=== PATIENT | female | born 1995 | race Hispanic/Latino ===

== ENCOUNTER 2017-08-04 18:47 | Emergency (ER) | payer MEDICAID ==
[2017-08-04 19:40] LABS: BASOPHILS % (AUTO) 0.4 % (0.0-5.0); EOSINOPHILS % (AUTO) 0.3 % (0.0-8.0); HEMATOCRIT 40.7 % (36-48); LYMPHOCYTES % (AUTO) 15.6 % (21.0-51.0); MEAN CORPUSCULAR HEMOGLOBIN 28.7 pg (27.0-33.0); MEAN CORPUSCULAR HGB CONC 33.9 g/dL (32.0-36.0); MEAN CORPUSCULAR VOLUME 84.7 fL (79-99); MONOCYTES % (AUTO) 8.2 % (3.0-13.0); NEUTROPHILS % (AUTO) 75.5 % (40.0-77.0); PLATELET COUNT (AUTO) 302 K/uL (130-400); WHITE BLOOD COUNT (AUTO) 11.9 K/uL (4.8-10.8)
[2017-08-04 19:43] LABS: BILIRUBIN,URINE Negative (NEGATIVE); COLOR,URINE Yellow (YELLOW); GLUCOSE, URINE (UA) Negative (NEGATIVE); KETONES,URINE Negative (NEGATIVE); LEUKOCYTE ESTERASE ,URINE Moderate (NEGATIVE); NITRATE,URINE Positive (NEGATIVE); OCCULT BLOOD,URINE Moderate (NEGATIVE); PH,URINE 5.5 (5.0-8.0); PROTEIN,URINE Negative (NEGATIVE)
[2017-08-04 19:46] LABS: APPEARANCE,URINE SLIGHTLY CLOUDY (CLEAR)
[2017-08-04 19:56] LABS: HCG,QUAL RESULT NEGATIVE (NEGATIVE)
[2017-08-04] MEDS ORDERED: ACETAMINOPHEN EXTRA STRENGTH 500 MG TABLET ONE (20:00)
[2017-08-04 20:10] LABS: CREATININE 0.8 mg/dL (0.5-1.5); POTASSIUM 3.5 mmol/L (3.5-5.1)
[2017-08-04 20:15] LABS: TOTAL PROTEIN, SERUM 7.9 g/dL (6.0-8.3)
[2017-08-04 20:32] LABS: BACTERIA,URINE Moderate /HPF (None Seen); WBC,URINE 26-50 /HPF (0-1)
[2017-08-04 20:33] LABS: SQUAMOUS EPITHELIAL CELL,UR Few /HPF (0-2)
[2017-08-04] MEDS ORDERED: CEFTRIAXONE SODIUM 1 GM ONE (20:44)
[2017-08-04] MEDS ORDERED: SODIUM CHLORIDE 0.9% 1000ML 1,000 ML IV ONE (20:44)
[2017-08-04] MEDS ORDERED: KETOROLAC TROMETHAMINE 30MG/ML ONE (20:53)
== END 2017-08-04 21:30 | disposition home or self-care (01) ==
LOC: EDH 18:47
DX: N39.0 Urinary tract infection, site not specified (principal); R30.0 Dysuria; Z98.51 Tubal ligation status; Z88.8 Allergy status to other drugs, medicaments and biological substances
CPT/HCPCS: 36415; 76700; 80053; 81001; 81025; 82150; 83690; 85025; 87088; 87186; 96374; 96375; 99285; J0696; J1885; J7030

== ENCOUNTER 2022-12-12 16:38 | Emergency (ER) | payer MEDICAID, OTHER ==
[~2022-12-12] VITALS: Ht 147.3 cm; Wt 55.8 kg
[2022-12-12 18:25] VITALS: BP 127/68; PULSE 71; RESP 16; O2SAT 96
[2022-12-12] MEDS ORDERED: ACETAMINOPHEN 500 MG TABLET PO ONE (19:30)
[2022-12-12] MEDS ORDERED: IBUP-2070 PO (20:12)
== END 2022-12-12 20:26 | disposition home or self-care (01) ==
LOC: EDH 16:38
DX: M79.89 Other specified soft tissue disorders (principal); M79.671 Pain in right foot; Z98.890 Other specified postprocedural states; Z88.8 Allergy status to other drugs, medicaments and biological substances
CPT/HCPCS: 73630; 93971

== ENCOUNTER 2023-11-13 10:25 | Emergency (ER) | payer OTHER ==
[~2023-11-13] VITALS: Ht 147.3 cm; Wt 59.0 kg
[~2023-11-13 10:25] MED LIST: IBUP-2070 PO
[2023-11-13 11:27] LABS: RAPID GROUP A STREP negative (NEGATIVE)
[2023-11-13 11:36] LABS: SARS-CoV-2, RNA, NAAT NEGATIVE SARS CoV-2 (NEGATIVE)
[2023-11-13 11:37] LABS: INFLUENZA TYPE A Negative For Type A (NEGATIVE); INFLUENZA TYPE B Negative For Type B (NEGATIVE)
[2023-11-13] MEDS ORDERED: BENZ-39 PO (12:23)
[2023-11-13 12:26] VITALS: BP 131/68; PULSE 82; RESP 18; O2SAT 98
[2023-11-13] MEDS ORDERED: GUAIFENESIN-CODEINE 5 ML SYRUP PO ONE (12:30)
== END 2023-11-13 12:29 | disposition home or self-care (01) ==
LOC: EDH 10:25
DX: B34.9 Viral infection, unspecified (principal); M79.18 Myalgia, other site; Z20.822 Contact with and (suspected) exposure to COVID-19; Z88.8 Allergy status to other drugs, medicaments and biological substances
CPT/HCPCS: 87635; 87804; 87880